=== PATIENT | female | born 1970 | race African-American/Black ===

== ENCOUNTER 2018-04-20 11:40 | Emergency (ER) | payer OTHER ==
[~2018-04-20] VITALS: Ht 167.6 cm; Wt 55.8 kg
[2018-04-20 12:06] VITALS: BP 100/72
--- NOTE | 2018-04-20 12:06 | NUR ---
PT AMBULATED TO ER BED 12
--- NOTE | 2018-04-20 12:25 | NUR ---
C/O RIGHT KNEE PAIN/SWELLING X LAST NIGHT---PAIN UPON BEARING WEIGHT WARM TO TOUCH; DENIES INJURY. VSS; PATIENT POSITIONED FOR COMFORT; HOB ELEVATED; BEDRAILS UP X1; BED DOWN. ER MD MADE AWARE OF PT STATUS.
[2018-04-20] MEDS ORDERED: KETOROLAC 60 MG/2 ML VIAL IM ONE (15:15)
[2018-04-20] MEDS ORDERED: DEXAMETHASONE 10 MG/ML VIAL IM ONE (15:15)
--- NOTE | 2018-04-20 16:38 | NUR ---
PT REFUSED CRUTCHES. FRANCISCO BRIAN MADE AWARE.
[2018-04-20 17:01] VITALS: BP 100/72
== END 2018-04-20 17:03 | disposition home or self-care (01) ==
LOC: MED 11:40
DX: M17.11 Unilateral primary osteoarthritis, right knee (principal); M25.461 Effusion, right knee
CPT/HCPCS: 29505; 73562; 96372; 99283; J1100; J1885; Q0092

== ENCOUNTER 2019-02-24 17:12 | Emergency (ER) | payer OTHER ==
[~2019-02-24] VITALS: Ht 165.1 cm; Wt 52.2 kg
--- NOTE | 2019-02-24 17:19 | NUR ---
Pt ambulated to bed 3 with use of crutches.
[2019-02-24 17:32] VITALS: BP 98/62
--- NOTE | 2019-02-24 17:46 | NUR ---
PT PRESENTS TO THE ED WITH C/O R LEG PAIN, R KNEE SWELLING X 2 WEEKS. PT STATES THAT PAIN IS SHARP AND SORE AND RATES PAIN 10/10 AT THIS TIME. PT STATES WHEN SHE WALKS SHE FEELS "LIKE ITS GOING TO GIVE OUT" AND "HEARS CLICKING WHEN BENDING KNEE". PT STATES THAT SHE ALSO FEELS LIKE "MY ELBOW IS ON FIRE". PT STATES THAT SHE HAS NOT TAKEN ANY MEDICATION FOR PAIN TODAY. PT STATES THAT HER LAST BM WAS 4 DAYS AGO BUT IS PASSING GAS. PT SKIN IS PINK, WARM, AND DRY. PT PRESENTS WITH A CLEAR SPEECH AND IS CONVERSING APPROPRIATELY. PT DENIES V/D, CP AND SOB AT THIS TIME. PT SITTING UPRIGHT IN CHAIR. ER MD TO SEE PT. REINALDO HX: AUTOIMMUNE ARTHRISTIS RX: DENIES
--- NOTE | 2019-02-24 17:57 | NUR ---
XRAY AT BEDSIDE.
[2019-02-24] MEDS ORDERED: IBUPROFEN 800 MG TAB PO ONE (18:20)
--- NOTE | 2019-02-24 18:24 | NUR ---
Patient being evaluated by DR. FLORES at bedside.
--- NOTE | 2019-02-24 18:30 | NUR ---
APPLIED KARRI WRAP TO RIGHT KNEE WITHOUT ANY ISSUES
[2019-02-24 18:37] VITALS: BP 106/64
--- NOTE | 2019-02-24 18:37 | NUR ---
Patient discharged with v/s stable. Written and verbal after care instructions given and explained. Patient alert, oriented and verbalized understanding of instructions. Wheel Chair Assisted with to car. All questions addressed prior to discharge. ID band removed. Patient advised to follow up with PMD. Rx of MOTRIN AND PREDNISONE given. Patient educated on indication of medication including possible reaction and side effects. Opportunity to ask questions provided and answered.
== END 2019-02-24 18:37 | disposition home or self-care (01) ==
LOC: MED 17:12
DX: M25.561 Pain in right knee (principal)
CPT/HCPCS: 73562; 99283; Q0092

== ENCOUNTER 2022-05-30 17:43 | Emergency (ER) | payer OTHER ==
[~2022-05-30] VITALS: Ht 165.1 cm; Wt 48.1 kg
[2022-05-30 17:58] VITALS: BP 95/75
[2022-05-30 18:51] LABS: BASOPHILS % (AUTO) 0.2 % (0.0-2.0); HEMATOCRIT 41.8 % (36-48); HEMOGLOBIN 13.9 g/dL (12.0-16.0); LYMPHOCYTES # (AUTO) 1.2 K/uL (2.5-16.5); LYMPHOCYTES % (AUTO) 12.7 % (20.5-51.1); MEAN CORPUSCULAR HEMOGLOBIN 31 pg (27-31); MEAN CORPUSCULAR HGB CONC 33 g/dL (33-37); MEAN CORPUSCULAR VOLUME 92.1 fL (80-94); MONOCYTES # (AUTO) 0.2 K/uL (0.8-1.0); MONOCYTES % (AUTO) 2.1 % (1.7-9.3); NEUTROPHILS # (AUTO) 8.1 K/uL (1.8-7.7); PLATELET COUNT (AUTO) 235 K/uL (140-450); RED BLOOD CELL COUNT(AUTO) 4.54 MIL/uL (4.20-5.40); RED CELL DISTRIBUTION WIDTH 16.8 % (11.6-13.7); WHITE BLOOD COUNT (AUTO) 9.6 K/uL (4.8-10.8)
[2022-05-30 19:10] LABS: ALBUMIN 3.7 g/dL (3.4-5.0); ANION GAP 12.8 (8-16); ASPARTATE AMINOTRANSFERASE 11 U/L (15-37); CARBON DIOXIDE 27.1 mmol/L (21-32); CHLORIDE 103 mmol/L (98-107); CREATININE 0.7 mg/dL (0.6-1.3); GFR ARICAN-AMERICAN 112 mL/min (>90); GLUCOSE 127 mg/dL (74-106); POTASSIUM 3.9 mmol/L (3.5-5.1); SODIUM SERUM 139 mmol/L (136-145); TOTAL BILIRUBIN 0.5 mg/dL (0.0-1.0); UREA NITROGEN, BLOOD 11 mg/dL (7-18)
[2022-05-30 19:50] VITALS: BP 102/75
== END 2022-05-30 19:50 | disposition home or self-care (01) ==
LOC: MED 17:43
DX: Z00.01 Encounter for general adult medical examination with abnormal findings (principal); M06.9 Rheumatoid arthritis, unspecified
CPT/HCPCS: 36415; 80053; 84484; 85025; 93005; 99284